=== PATIENT | male | born 1995 | race American Indian/Alaskan Native ===

== ENCOUNTER 2019-11-05 22:29 | Emergency (ER) | payer SELFPAY ==
[2019-11-05 22:50] VITALS: BP 110/69
--- NOTE | 2019-11-05 23:48 | XRay Report ---
CHEST 2 VIEWS 2316 INDICATION / CLINICAL INFORMATION: Chest Pain COMPARISON: None available. FINDINGS: SUPPORT DEVICES: None. HEART / MEDIASTINUM: No significant abnormality. LUNGS / PLEURA: No significant pulmonary or pleural abnormality. No pneumothorax. ADDITIONAL FINDINGS: No significant additional findings. IMPRESSION: No significant acute abnormality Signer Name: Larry Cabrera MD Signed: 11/05/2019 11:44 PM Workstation Name: [id number]
[2019-11-06] MEDS ORDERED: SUCRALFATE 1 GM TAB PO ONE (01:24)
[2019-11-06] MEDS ORDERED: ACETAMINOPHEN 325 MG TAB PO ONE (01:24)
--- NOTE | 2019-11-06 01:29 | Emergency Department Report ---
ED General Adult HPI - General Chief complaint: Chest Pain Stated complaint: CHEST PAIN Source: patient Mode of arrival: Ambulatory Limitations: No Limitations - History of Present Illness Initial comments: Patient is a 24-year-old -Citizen Of [place] male with no past medical history presents to the ED with complaint of acute onset persistent epigastric pain that radiates to the substernal area, worse with swallowing food for the last 1 week. Patient states that the pain is intermittent and persistent. Patient also states that he is performs a lot of heavy lifting at work and suspect that it could also be complicated by heavy lifting at work. Patient denies dizziness, syncope, shortness of breath, cough, hemoptysis, nausea, vomiting, diarrhea, sore throat, nasal and sinus congestion, change in vision, fever and chills or hematemesis. MD Complaint: epigastric pain that radiates to the substernal area worse with swallowing -: Sudden, week(s) (1) Location: chest, abdomen Radiation: non-radiation Severity scale (0 -10): 3 Quality: burning, aching Consistency: intermittent Improves with: none Worsens with: eating Associated Symptoms: denies other symptoms, chest pain. denies: confusion, cough, diaphoresis, fever/chills, headaches, loss of appetite, malaise, nausea/vomiting, rash, seizure, shortness of breath, syncope, weakness Treatments Prior to Arrival: none - Related Data Previous Rx's Medication Instructions Recorded Last Taken Type Acetaminophen [Tylenol] 500 mg PO Q6HR PRN #30 tablet 11/06/19 Unknown Rx Famotidine [Pepcid] 20 mg PO BID #60 tablet 11/06/19 Unknown Rx Omeprazole 40 mg PO DAILY #30 capsule. 11/06/19 Unknown Rx Allergies Allergy/AdvReac Type Severity Reaction Status Date / Time No Known Allergies Allergy Unverified 11/05/19 22:48 ED Review of Systems ROS: Stated complaint: CHEST PAIN Other details as noted in HPI Constitutional: denies: chills, fever Eyes: denies: eye pain, eye discharge, vision change ENT: denies: ear pain, throat pain Respiratory: denies: cough, shortness of breath, wheezing Cardiovascular: chest pain (Substernal chest pain). denies: palpitations Endocrine: no symptoms reported Gastrointestinal: abdominal pain (Epigastric pain). denies: nausea, diarrhea Genitourinary: denies: urgency, dysuria Musculoskeletal: denies: back pain, joint swelling, arthralgia Skin: denies: rash, lesions Neurological: denies: headache, weakness, paresthesias Psychiatric: denies: anxiety, depression Hematological/Lymphatic: denies: easy bleeding, easy bruising ED Past Medical Hx - Past Medical History Previous Medical History?: No - Surgical History Past Surgical History?: No - Social History Smoking Status: Current Every Day Smoker - Medications Home Medications: Home Medications Medication Instructions Recorded Confirmed Last Taken Type Acetaminophen [Tylenol] 500 mg PO Q6HR PRN #30 tablet 11/06/19 Unknown Rx Famotidine [Pepcid] 20 mg PO BID #60 tablet 11/06/19 Unknown Rx Omeprazole 40 mg PO DAILY #30 capsule. 11/06/19 Unknown Rx ED Physical Exam - General Limitations: No Limitations General appearance: alert, in no apparent distress - Head Head exam: Present: atraumatic, normocephalic, normal inspection - Eye Eye exam: Present: normal appearance, PERRL, EOMI Pupils: Present: normal accommodation - ENT ENT exam: Present: normal exam, normal orophraynx, mucous membranes moist, TM's normal bilaterally, normal external ear exam - Neck Neck exam: Present: normal inspection, full ROM - Respiratory Respiratory exam: Present: normal lung sounds bilaterally. Absent: respiratory distress, wheezes, rales, rhonchi, chest wall tenderness, decreased breath sounds, prolonged expiratory - Cardiovascular Cardiovascular Exam: Present: regular rate, normal rhythm, normal heart sounds. Absent: systolic murmur, diastolic murmur, rubs, gallop - GI/Abdominal GI/Abdominal exam: Present: soft, normal bowel sounds. Absent: tenderness, guarding, rebound, hyperactive bowel sounds, hypoactive bowel sounds - Extremities Exam Extremities exam: Present: normal inspection, full ROM, normal capillary refill - Back Exam Back exam: Present: normal inspection, full ROM. Absent: tenderness, CVA tenderness (R), CVA tenderness (L), muscle spasm, paraspinal tenderness, vertebral tenderness - Neurological Exam Neurological exam: Present: alert, oriented X3, CN II-XII intact, normal gait, reflexes normal - Psychiatric Psychiatric exam: Present: normal affect, normal mood - Skin Skin exam: Present: warm, dry, intact, normal color. Absent: rash ED Course Vital Signs 11/05/19 22:46 Temperature 98.4 F Pulse Rate 67 Respiratory 18 Rate Blood Pressure 110/69 O2 Sat by Pulse 99 Oximetry ED Medical Decision Making - Radiology Data Radiology results: report reviewed, image reviewed Findings [facility] [address] [place] [address] XRay Report Signed Patient: PATIENCE CLAUDIO MR#: [id number] : 1995 Acct:[id number] Age/Sex: 24 / M ADM Date: 11/05/19 Loc: ED Attending Dr: Ordering Physician: JOSE DENNY MD Date of Service: 11/05/19 Procedure(s): XR chest routine 2V Accession Number(s): [id number] cc: ED MD DENISHA Fluoro Time In Minutes: CHEST 2 VIEWS 2317 INDICATION / CLINICAL INFORMATION: Chest Pain COMPARISON: None available. FINDINGS: SUPPORT DEVICES: None. HEART / MEDIASTINUM: No significant abnormality. LUNGS / PLEURA: No significant pulmonary or pleural abnormality. No pneumothorax. ADDITIONAL FINDINGS: No significant additional findings. IMPRESSION: No significant acute abnormality Signer Name: Larry Cabrera MD Signed: 11/05/2019 11:44 PM Workstation Name: [id number] Transcribed By: GJ Dictated By: Larry Cabrera MD Electronically Authenticated By: Larry Cabrera MD Signed Date/Time: 11/05/192343 DD/ 43 TD/TT: - Medical Decision Making This is a 24-year-old -Citizen Of [place] male with no past medical history presents to the ED with complaint of acute onset persistent epigastric pain that radiates to the substernal area, worse with swallowing food for the last 1 week. Patient states that the pain is intermittent and persistent. Patient also states that he is performs a lot of heavy lifting at work and suspect that it could also be complicated by heavy lifting at work. In the ED, patient is alert and oriented x3 and is not in any distress. Chest x-ray shows no acute cardiopulmonary abnormalities or pneumonitis. Based on the physical exam findings and the patient's history, patient symptoms are likely due to GERD complications and muscle strain from heavy lifting at work. Patient has no cardiac risk factors and risk heart score is 0. Patient was treated with with Carafate oral tablets and a Tylenol in the ED. Patient was discharged home on medications including antacids and was advised to follow-up with his primary care physician in 5 to 7 days for reevaluation or return to the ED immediately if symptoms get worse. - Differential Diagnosis GERD; Muscle strain; Costochondritis; Pneumonia Critical care attestation.: If time is entered above; I have spent that time in minutes in the direct care of this critically ill patient, excluding procedure time. ED Disposition Clinical Impression: Acute nonspecific chest pain with low risk of coronary artery disease GERD (gastroesophageal reflux disease) Qualifiers: Esophagitis presence: without esophagitis Qualified Code(s): K21.9 - Gastro- esophageal reflux disease without esophagitis Disposition: TO HOME OR SELFCARE Is pt being admited?: No Does the pt Need Aspirin: No Condition: Stable Instructions: Chest Pain (ED), Costochondritis (ED), Gastroesophageal Reflux Disease (ED) Additional Instructions: Take medication with food, drink plenty of fluids and follow-up with your primary care physician in 5 to 7 days for reevaluation. Return to the ED immediately if symptoms get worse. Prescriptions: Acetaminophen [Tylenol] 500 mg PO Q6HR PRN #30 tablet PRN Reason: Pain , Severe (7-10) Omeprazole 40 mg PO DAILY #30 capsule. Famotidine [Pepcid] 20 mg PO BID #60 tablet Referrals: [facility] [Provider Group] - 3-5 Days Time of Disposition: :31 Print Language: KINYARWANDA
== END 2019-11-06 02:18 | disposition home or self-care (01) ==
LOC: ED 22:29
DX: K21.9 Gastro-esophageal reflux disease without esophagitis (principal); R07.89 Other chest pain; F17.200 Nicotine dependence, unspecified, uncomplicated; Z79.899 Other long term (current) drug therapy
CPT/HCPCS: 71046; 93005